=== PATIENT | male | born 1985 | race Caucasian/White ===

== ENCOUNTER 2018-04-26 04:39 | Emergency (ER) | payer MEDICARE, OTHER ==
[~2018-04-26] VITALS: Ht 175.3 cm; Wt 97.5 kg
[~2018-04-26 04:39] MED LIST: ARMODAFINIL50 MG PO; CENTRUM SILVER1 EAC2 PO; FOLIC ACID1 MG PO; GLUCOSAMINE HC500 MG PO; LISINOPRIL10 MG PO; NEXIUM40 MG PO; PROPRANOLOL 1010 MG PO; VITAMIN D2000 UNIT PO; WELLBUTRIN 100100 MG PO; XANAX 0.25 MG0.25 MG PO
[2018-04-26 04:41] VITALS: BP 126/87
[2018-04-26] MEDS ORDERED: TRAMADOL 50 MG50 MG PO (04:46)
[2018-04-26] MEDS ORDERED: ZANAFLEX4 M1 PO (04:46)
[2018-04-26] MEDS ORDERED: IBUPROFEN 600600 M1 PO (04:46)
[2018-04-26] MEDS ORDERED: NORCO 5-325 TA1 EACH PO (05:56)
[2018-04-26] MEDS ORDERED: LIDODERM1 EACH TRANSDERM (05:56)
== END 2018-04-26 06:06 | disposition home or self-care (01) ==
LOC: M.ERS 04:39
DX: R07.81 Pleurodynia (principal); F31.9 Bipolar disorder, unspecified; I10 Essential (primary) hypertension; F41.9 Anxiety disorder, unspecified; G47.30 Sleep apnea, unspecified; Z91.041 Radiographic dye allergy status; Z88.8 Allergy status to other drugs, medicaments and biological substances

== ENCOUNTER → 2019-01-23 | Outpatient (CLI) | payer MEDICARE, OTHER ==
[~2019-01-23] MED LIST changes: +IBUPROFEN 600600 M1 PO; +LIDODERM1 EACH TRANSDERM; +NORCO 5-325 TA1 EACH PO; +TRAMADOL 50 MG50 MG PO; +ZANAFLEX4 M1 PO
== END ==
LOC: M.ULTRA 09:46
DX: N43.3 Hydrocele, unspecified (principal); N50.9 Disorder of male genital organs, unspecified; Z88.8 Allergy status to other drugs, medicaments and biological substances

== ENCOUNTER → 2019-07-28 | Day surgery (SDC) | payer MEDICARE, OTHER ==
[~2019-07-28] MED LIST changes: +CLIMARA1 EAC3 TRANSDERM; +LUPRON DEPOT11.25 MG IM
[2019-07-28 06:42] LABS: HEMATOCRIT 40.7 % (42.0-52.0); MCH 30.9 pg (26.0-34.0); MCHC 34.5 g/dL (28.0-37.0); MCV 89.5 fL (80.0-100.0); MPV 7.5 fl. (7.2-11.1); RBC 4.54 mil/uL (4.50-6.00); WBC 11.8 thou/uL (4.0-11.0)
[2019-07-28 06:51] LABS: POTASSIUM 3.7 mmol/L (3.5-5.1)
[2019-07-28 06:57] LABS: ALBUMIN 3.8 g/dL (3.4-5.0); TOTAL BILIRUBIN 0.5 mg/dL (<0.1-1.0); TOTAL PROTEIN 7.1 g/dL (6.4-8.2)
--- NOTE | 2019-07-28 08:47 | EKG ---
[place] [address] ELECTROCARDIOGRAM REPORT Name: SATNAM GRUBER Room: [facility]#: [id number] Admission: 07/28/19 Attend Phys: Wellington Montes Discharge: Date of : 83 Report #: [id number] THIS REPORT FOR: //name// [facility] Test Date: 2019-07-28 Test Time: 06:38:21 Pat Name: SATNAM GRUBER Department: Room: Gender: M Security Installer: ANIYA : 1985 Requested By: Wellington Montes Order Number: [id number] Estrellita MD: Andrew Thornton Measurements Intervals [place] Rate: 86 P: 72 PA: 161 QRS: 58 QRSD: 107 T: 22 QT: 368 QTc: 440 Interpretive Statements Sinus rhythm Compared to ECG 07/02/2017 16:56:46 T-wave abnormality no longer present Electronically Signed On 07-28-2019 8:47:29 CDT by Andrew Thornton [email or web address] <ELECTRONICALLY SIGNED> By: Andrew Thornton MD, [facility] 07/28/19 0847 D: 10/637 7 Andrew Thornton MD, FACC /EPI
--- NOTE | 2019-07-29 17:06 | PATH ---
[address] [address] PATHOLOGY RPT PROCEDURE Name: ESAU BLAKELY Makenzie Room: [facility].#: [id number] Admission: 07/28/19 Date of : 83 Discharge: Report #: [id number] Path Case #: [id number] [facility] Accession Number: [id number] . 01 Material submitted: . buttock - PILONIDAL CYST . 01 Clinical history: . Pilonidal cyst . 02 Diagnosis: Pilonidal cyst: - Benign skin with pilonidal cyst/sinus showing acute and chronic inflammation, abscess formation, foreign body type granulomatous response and fibrosis. . (MELISA:mml; 07/29/2019) QLM 07/29/2019 1559 Local . 02 Electronically signed: . Derrick Palafox MD, Pathologist NPI- [id number] . 01 Gross description: . The specimen is received in formalin, labeled "Esau Blakely, pilonidal cyst". Received is an ellipse of light jordan, grossly unremarkable skin with attached underlying fibroadipose tissue measuring 3.8 x 1.3 x 1.7 cm in greatest dimensions. Sectioning reveals yellow-jordan to pink-jordan cut surfaces throughout with no grossly distinct cystic structure or sinus tract. The specimen is submitted entirely in cassettes A1 through A5. (CAA; 07/28/2019) QA/QAC 07/29/2019 [facility] Local . 02 Pathologist provided ICD-10: L05.91 . 02 CPT . 675950 Specimen Comment: A courtesy copy of this report has been sent to Specimen Comment: [phone], . Specimen Comment: Report sent to / DR CLEANING Performed at: [address] [id number] MD Nuno De Anda MD Phone: [phone] Performed at: 02 [facility] [address] [place], [place] [id number] [address] [address] PATHOLOGY RPT PROCEDURE Name: ESAU BLAKELY Room: [facility]..#: [id number] Admission: 07/28/19 Date of : 83 Discharge: Report #: [id number] Path Case #: [id number] MD Derrick Palafox MD Phone: [phone]
--- NOTE | 2019-08-07 08:40 | OP ---
[facility] [address] [place] [address] OPERATIVE REPORT Name: ALLYNSATNAM Banegas Room: [facility]#: [id number] Admission: 07/28/19 Attend Phys: Wellington Montes Discharge: Date of : 83 Report #: [id number] THIS REPORT FOR: //name// CC: Wellington Tirado DATE OF SERVICE: 07/28/2019 PREOPERATIVE DIAGNOSIS: Pilonidal cyst. POSTOPERATIVE DIAGNOSIS: Pilonidal cyst. OPERATION: Pilonidal cystectomy. SURGEON: Wellington Montes MD ANESTHESIA: General. ESTIMATED BLOOD LOSS: Minimal. SPECIMEN: Pilonidal cyst. DESCRIPTION OF PROCEDURE: After informed consent was obtained, the patient was brought to the operating room and placed supine. SCDs were placed and working, preoperative antibiotics were administered, and general anesthesia was induced. The patient was then placed in the right lateral decubitus position and the area was prepped and draped in the usual sterile fashion. Area was anesthetized with 10 mL of 0.5% Marcaine solution. A 2 cm elliptical incision was made over the pilonidal cyst tract. Cautery dissection was made widely around the lesion to healthy fat on all sides and then down to the coccyx. The area was then copiously irrigated with normal saline. It was reapproximated with interrupted 2-0 nylon. Sterile dressings were applied. COMPLICATIONS: None. DISPOSITION: The patient was taken to recovery in satisfactory condition. <ELECTRONICALLY SIGNED> By: Wellington Montes MD 08/07/19 0840 0817 Wellington Montes MD /nt
== END | disposition home or self-care (01) ==
LOC: M.SUR 06:13
PROVIDERS: Surgery
DX: L05.01 Pilonidal cyst with abscess (principal); Z98.890 Other specified postprocedural states; Z91.041 Radiographic dye allergy status; Z88.8 Allergy status to other drugs, medicaments and biological substances; Z79.899 Other long term (current) drug therapy

== ENCOUNTER → 2021-09-12 | Outpatient (CLI) | payer MEDICARE, OTHER | LOC: M.ULTRA 07:39 | PROVIDERS: ATTEND Family Medicine | DX: K76.0 Fatty (change of) liver, not elsewhere classified (principal); R16.0 Hepatomegaly, not elsewhere classified; R19.8 Other specified symptoms and signs involving the digestive system and abdomen ==

== ENCOUNTER → 2021-10-11 | Outpatient (CLI) | payer MEDICARE, OTHER | LOC: M.NUC 06:55 | PROVIDERS: ATTEND Family Medicine | DX: R10.11 Right upper quadrant pain (principal); R19.8 Other specified symptoms and signs involving the digestive system and abdomen ==